=== PATIENT | female | born 1945 | race Caucasian/White ===

== ENCOUNTER 2021-11-19 20:54 | Inpatient (IN) ==
[2021-11-19] MEDS ORDERED: Lactated Ringers 1000 ml BAG 1,000 ML IV ONE (21:32)
[2021-11-19 22:23] LABS: ABS Lymphocytes 0.7 10^3/ul (1.0-4.8); ABS Monocytes 0.5 10^3/ul (0-0.8); ABS Neutrophils 3.6 10^3/ul (1.5-7.7); Eosinophil % 0.1 %; Hematocrit 33 % (35-47); Hemoglobin 11.2 g/dL (12.0-16.0); Lymphocyte % 14.2 %; Mean Corpuscular HGB Conc 34 g/dL (31-36); Mean Corpuscular Hemoglobin 31 pg (27-31); Mean Corpuscular Volume 92 fL (80-97); Mean Platelet Volume 9.5 fL (7.4-10.4); Nucleated Red Blood Cells % 0.2; Platelet Count 169 10^3/uL (150-450); Red Blood Count 3.56 10^6 /uL (3.70-4.87); Red Cell Distribution Width 13 % (10-15); White Blood Count 4.9 10^3/uL (3.5-10.8)
[2021-11-19 22:33] LABS: High Sens Troponin Baseline 238 pg/mL (<15)
[2021-11-19 22:48] LABS: Urine Appearance Clear; Urine Bilirubin Negative (Negative); Urine Blood 3+ (Large) (Negative); Urine Color Yellow; Urine Glucose Negative (Negative); Urine Ketones 4+ (>=160mg/dL) (Negative); Urine Nitrite Negative (Negative); Urine Protein 1+ (30 mg/dL) (Negative); Urine Specific Gravity 1.025 (1.005-1.030); Urine Urobilinogen 0.2 (Negative) (Negative)
[2021-11-19 22:56] LABS: ALT 42 U/L (7-52); Albumin 3.8 g/dL (3.2-5.2); Albumin/Globulin Ratio 1.5 (1-3); Alkaline Phosphatase 37 U/L (35-149); Blood Urea Nitrogen 19 mg/dL (6-24); C Reactive Protein 18.92 mg/L (<8.01); CO2 Carbon Dioxide 26 mmol/L (22-32); Chloride 103 mmol/L (101-111); Globulin 2.6 g/dL (2-4); Glucose 95 mg/dL (70-100); Sodium 135 mmol/L (135-145); Total Protein 6.4 g/dL (6.4-8.9); eGFR CKD-EPI 90.9 (>60)
[2021-11-19 23:02] LABS: Urine Bacteria Absent (Absent); Urine Red Blood Cell Trace(0-2/hpf) (Absent); Urine Squamous Epithelial Cell Present (Absent); Urine White Blood Cell Trace(0-5/hpf) (Absent)
[2021-11-19 23:12] LABS: Magnesium 1.8 mg/dL (1.9-2.7)
[2021-11-19 23:17] LABS: Anion Gap 6 mmol/L (2-11)
[2021-11-19 23:41] LABS: High Sensitivity Troponin 1 Hr 250 pg/mL (<15)
[2021-11-20] MEDS ORDERED: Magnesium Sulfate IV 1GM/100ML 1 GM/100 ML BAG IV ONE (01:13)
[2021-11-20] MEDS ORDERED: D5LR 1000 ml BAG 1,000 ML IV SCH (02:00)
[2021-11-20 03:23] LABS: High Sensitivity Troponin 3 Hr 263 pg/mL (<15)
[2021-11-20] MEDS ORDERED: Thiamine 100 MG/ML 2 ml VIAL (200 mg) IV ONE (05:12)
[2021-11-20] MEDS ORDERED: Thiamine IV 100 MG in NS 0.9% 50 ML IV ONE (05:30)
[2021-11-20] MEDS: Enoxaparin 40 MG/0.4 ML SYR SUBCUT SCH (06:24)
[2021-11-20 07:27] LABS: Anion Gap 9 mmol/L (2-11); Blood Urea Nitrogen 16 mg/dL (6-24); CO2 Carbon Dioxide 28 mmol/L (22-32); Calcium 8.8 mg/dL (8.6-10.3); Chloride 103 mmol/L (101-111); Glucose 81 mg/dL (70-100); Phosphorus 2.9 mg/dL (2.5-5.0); Sodium 140 mmol/L (135-145); eGFR CKD-EPI 92.2 (>60)
[2021-11-20 10:08] LABS: Total Iron Binding Capacity 253 mcg/dL (250-450); Transferrin 181 mg/dL (203-362)
[2021-11-20 10:13] LABS: % Iron Saturation 8 % (15-55); Iron < 20 ug/dL (50-212); Unsaturated Iron Binding 233 ug/dL
[2021-11-20 10:22] LABS: TSH Ultra Thyroid Stim Horm 0.41 mcIU/mL (0.34-5.60)
[2021-11-20 10:29] LABS: Ferritin 150.2 ng/mL (11-307)
[2021-11-20 10:32] LABS: Folate > 20.00 ng/mL (5.90-24.80)
[2021-11-20 10:34] LABS: Vitamin B12 > 1450 pg/mL (180-914)
[2021-11-20] MEDS ORDERED: Senna TAB 8.6 mg TAB PO PRN (13:43)
[2021-11-20] MEDS ORDERED: Magnesium Hydroxide LIQ 30 ML UDC PO PRN (13:43)
[2021-11-20] MEDS ORDERED: Thiamine 100 MG/ML 2 ml VIAL (200 mg) IV SCH (17:00)
[2021-11-20] MEDS: Thiamine IV 100 MG in NS 0.9% 50 ML Q24H IV SCH (20:15)
[2021-11-21] MEDS: Enoxaparin 40 MG/0.4 ML SYR SUBCUT SCH (05:43)
[2021-11-21] MEDS: Thiamine IV 100 MG in NS 0.9% 50 ML Q24H IV SCH ×2 (05:51→18:42)
[2021-11-21] MEDS ORDERED: Iron Sucrose 20 MG/ML 5 ML VIAL IV PUSH SCH (11:00)
[2021-11-21] MEDS: Iron Sucrose 200 MG in NS 0.9% 100 ml IVPB SCH (12:04)
[2021-11-21] MEDS ORDERED: cefTRIAXone 1 gm/50 mL D5W 1 GM/50 ML BAG IV SCH (20:00)
[2021-11-22] MEDS: Thiamine IV 100 MG in NS 0.9% 50 ML Q24H IV SCH ×2 (05:21→16:25)
[2021-11-22] MEDS: Enoxaparin 40 MG/0.4 ML SYR SUBCUT SCH (06:12)
[2021-11-22] MEDS: Iron Sucrose 200 MG in NS 0.9% 100 ml IVPB SCH (08:34)
[2021-11-23] MEDS: Thiamine IV 100 MG in NS 0.9% 50 ML Q24H IV SCH ×2 (05:02→18:30)
[2021-11-23] MEDS: Enoxaparin 40 MG/0.4 ML SYR SUBCUT SCH (05:03)
[2021-11-23 06:28] LABS: ABS Lymphocytes 1.4 10^3/ul (1.0-4.8); ABS Monocytes 0.4 10^3/ul (0-0.8); Eosinophil % 0.1 %; Hematocrit 34 % (35-47); Hemoglobin 12.1 g/dL (12.0-16.0); Lymphocyte % 36.1 %; Mean Corpuscular HGB Conc 35 g/dL (31-36); Mean Corpuscular Hemoglobin 32 pg (27-31); Mean Corpuscular Volume 91 fL (80-97); Nucleated Red Blood Cells % 0.1; Platelet Count 128 10^3/uL (150-450); Red Blood Count 3.77 10^6 /uL (3.70-4.87); Red Cell Distribution Width 13 % (10-15); White Blood Count 3.7 10^3/uL (3.5-10.8)
[2021-11-23 07:06] LABS: Calcium 8.8 mg/dL (8.6-10.3); Potassium 3.7 mmol/L (3.5-5.0); eGFR CKD-EPI 95.8 (>60)
[2021-11-23] MEDS: Iron Sucrose 200 MG in NS 0.9% 100 ml IVPB SCH (09:31)
[2021-11-24] MEDS: Thiamine IV 100 MG in NS 0.9% 50 ML Q24H IV SCH (05:10)
[2021-11-24] MEDS: Enoxaparin 40 MG/0.4 ML SYR SUBCUT SCH (05:14)
[2021-11-24 06:01] LABS: Hematocrit 34 % (35-47); Hemoglobin 11.8 g/dL (12.0-16.0); Mean Corpuscular HGB Conc 35 g/dL (31-36); Mean Corpuscular Hemoglobin 32 pg (27-31); Mean Corpuscular Volume 91 fL (80-97); Mean Platelet Volume 9.1 fL (7.4-10.4); Platelet Count 134 10^3/uL (150-450); Red Blood Count 3.68 10^6 /uL (3.70-4.87); Red Cell Distribution Width 13 % (10-15)
[2021-11-24 06:41] LABS: Calcium 8.6 mg/dL (8.6-10.3); Potassium 3.5 mmol/L (3.5-5.0); eGFR CKD-EPI 94.9 (>60)
[2021-11-24] MEDS: Iron Sucrose 200 MG in NS 0.9% 100 ml IVPB SCH (09:35)
[2021-11-25 05:34] LABS: ABS Lymphocytes 1.1 10^3/ul (1.0-4.8); ABS Monocytes 0.5 10^3/ul (0-0.8); ABS Neutrophils 2.2 10^3/ul (1.5-7.7); Eosinophil % 0.5 %; Hematocrit 34 % (35-47); Hemoglobin 11.6 g/dL (12.0-16.0); Lymphocyte % 28.4 %; Mean Corpuscular HGB Conc 34 g/dL (31-36); Mean Corpuscular Hemoglobin 31 pg (27-31); Mean Corpuscular Volume 91 fL (80-97); Mean Platelet Volume 9.5 fL (7.4-10.4); Nucleated Red Blood Cells % 0.2; Platelet Count 157 10^3/uL (150-450); Red Blood Count 3.76 10^6 /uL (3.70-4.87); Red Cell Distribution Width 13 % (10-15); White Blood Count 3.8 10^3/uL (3.5-10.8)
[2021-11-25] MEDS: Enoxaparin 40 MG/0.4 ML SYR SUBCUT SCH (05:36)
[2021-11-25 05:52] LABS: Potassium 3.7 mmol/L (3.5-5.0); eGFR CKD-EPI 94.1 (>60)
[2021-11-25] MEDS: Iron Sucrose 200 MG in NS 0.9% 100 ml IVPB SCH (09:43)
[2021-11-25 11:59] VITALS: BP 131/68
== END 2021-11-25 13:16 | disposition swing bed (61) | DRG 947 ==
LOC: EDHOLD 20:54 → ED 20:54 → SUATTDRO 11-20 01:09 → MEDTELE 11-20 15:16 → SUATTDRO 11-22 13:43
PROVIDERS: ADMIT Internal Medicine; ATTEND Internal Medicine